=== PATIENT | female | born 1955 | race Caucasian/White ===

== ENCOUNTER 2019-09-22 17:01 | Inpatient (IN) ==
[2019-09-22] MEDS ORDERED: Ondansetron 4 mg VIAL 2 MG/ML 2 ml VIAL IV PRN (17:14)
[2019-09-22] MEDS ORDERED: Morphine 10 MG/ML VIAL (1 ml) IV PRN (17:14)
[2019-09-22] MEDS ORDERED: diPHENhydraMINE IV 50 MG/ML 1 ml VIAL (BENADRYL) IV PRN (17:14)
[2019-09-22] MEDS ORDERED: oxyCODONE/Acetamin 5/325 mg TAB PO PRN (17:14)
[2019-09-22 17:49] LABS: ABS Basophils 0.1 10^3/ul (0-0.2); ABS Eosinophils 0.3 10^3/ul (0-0.6); ABS Lymphocytes 1.3 10^3/ul (1.0-4.8); ABS Monocytes 0.5 10^3/ul (0-0.8); ABS Neutrophils 4.1 10^3/ul (1.5-7.7); Eosinophil % 5.1 %; Hematocrit 34 % (35-47); Hemoglobin 11.4 g/dL (12.0-16.0); Lymphocyte % 20.2 %; Mean Corpuscular HGB Conc 34 g/dL (31-36); Mean Corpuscular Hemoglobin 30 pg (27-31); Mean Corpuscular Volume 90 fL (80-97); Mean Platelet Volume 7.3 fL (7.4-10.4); Nucleated Red Blood Cells % 0.1; Platelet Count 190 10^3/uL (150-450); Red Blood Count 3.76 10^6 /uL (3.70-4.87); Red Cell Distribution Width 13 % (10-15); White Blood Count 6.3 10^3/uL (3.5-10.8)
[2019-09-22 18:05] LABS: EGFR African American 92.2 (>60); EGFR Non-African American 76.2 (>60)
[2019-09-22 18:15] LABS: Activated Partial Thrombo Time 27.4 seconds (26.0-38.0); INR 1.02 (0.82-1.09)
[2019-09-22] MEDS: Lactated Ringers 1000 ml BAG 1,000 ML IV SCH (18:22)
[2019-09-23] MEDS: Lactated Ringers 1000 ml BAG 1,000 ML IV SCH ×2 (04:28→20:49)
[2019-09-23] MEDS ORDERED: ceFAZolin 2 GM PREMIX 2 GM/50 ML BAG ONE (15:28)
[2019-09-23] MEDS ORDERED: fentaNYL 100 mcg/2 ml 50 MCG/ML VIAL ONE (15:53)
[2019-09-23] MEDS ORDERED: Midazolam 2 mg/2 ml VIAL 1 mg/ml 2 ml VIAL (2 mg) ONE (15:53)
[2019-09-23] MEDS ORDERED: Lidocaine 2% PF 5 ML VIAL ONE (15:55)
[2019-09-23] MEDS ORDERED: Propofol 10 mg/ml 100 ML BTL 100 ML ONE (15:56)
[2019-09-23] MEDS ORDERED: ceFAZolin 2 GM PREMIX 2 GM/50 ML BAG IVPB ONE (17:00)
[2019-09-23] MEDS ORDERED: Acetaminophen IV 1 GM/100ML 100 ML ONE (17:36)
[2019-09-23] MEDS ORDERED: Bupivacaine 0.25% SDV 30 ML ONE (18:32)
[2019-09-23] MEDS ORDERED: oxyCODONE/Acetamin 5/325 mg TAB PO PRN ×2 (18:48)
[2019-09-23] MEDS ORDERED: Ondansetron ODT 4 mg TAB 4 MG TAB PO PRN (18:48)
[2019-09-23] MEDS ORDERED: Lactulose 30 ml UDC PO PRN (18:48)
[2019-09-23] MEDS ORDERED: Magnesium Hydroxide LIQ 30 ML UDC PO PRN (18:48)
[2019-09-23] MEDS ORDERED: diPHENhydraMINE IV 50 MG/ML 1 ml VIAL (BENADRYL) IV PRN (18:48)
[2019-09-23] MEDS ORDERED: diPHENhydraMINE 25 mg TAB PO PRN (18:48)
[2019-09-23] MEDS ORDERED: oxyCODONE/Acetamin 5/325 mg TAB ONE (19:09)
[2019-09-23] MEDS: Magnesium Hydroxide LIQ 30 ML UDC PO SCH (20:51)
[2019-09-23] MEDS: Ondansetron 4 mg VIAL 2 MG/ML 2 ml VIAL IV PRN (23:02)
[2019-09-24] MEDS: ceFAZolin 1 GM ADVAN 1 GM in NS 0.9% 50 ML 50 ML IVPB SCH ×3 (01:14→17:46)
[2019-09-24 06:31] LABS: Hematocrit 29 % (35-47); Hemoglobin 10.4 g/dL (12.0-16.0)
[2019-09-24 06:49] LABS: BUN/Creatinine Ratio 25.5 (8-20); Calcium 8.3 mg/dL (8.6-10.3); EGFR Non-African American 112.4 (>60)
[2019-09-24] MEDS: Lactated Ringers 1000 ml BAG 1,000 ML IV SCH ×2 (07:08→17:46)
[2019-09-24] MEDS: Vitamin THERAPEUTIC TAB PO SCH (08:18)
[2019-09-24] MEDS: Magnesium Hydroxide LIQ 30 ML UDC PO SCH ×3 (08:29→21:31)
[2019-09-24] MEDS: Ondansetron 4 mg VIAL 2 MG/ML 2 ml VIAL IV PRN (08:30)
[2019-09-24 09:57] LABS: Mean Platelet Volume 7.4 fL (7.4-10.4); Platelet Count 167 10^3/uL (150-450)
[2019-09-25] MEDS: Lactated Ringers 1000 ml BAG 1,000 ML IV SCH (03:46)
[2019-09-25 04:43] LABS: Hematocrit 26 % (35-47); Mean Platelet Volume 7.6 fL (7.4-10.4); Platelet Count 152 10^3/uL (150-450)
[2019-09-25] MEDS: Vitamin THERAPEUTIC TAB PO SCH (07:55)
[2019-09-25] MEDS: Magnesium Hydroxide LIQ 30 ML UDC PO SCH (07:55)
[2019-09-25 11:25] VITALS: BP 104/85
== END 2019-09-25 14:30 | disposition home health service (06) | DRG 301 ==
LOC: SSU 17:01
PROVIDERS: ADMIT Orthopaedic Surgery; ATTEND Orthopaedic Surgery Adult Reconstructive Orthopaedic Surgery